=== PATIENT | female | born 1950 | race African-American/Black ===

== ENCOUNTER 2019-09-21 07:16 | Inpatient (IN) ==
[2019-09-21] MEDS ORDERED: PANTOPRAZOLE 40 MG VIAL IV STA (07:47)
[2019-09-21] MEDS ORDERED: ONDANSETRON 4 MG/2 ML VIAL IV STA (07:47)
[2019-09-21] MEDS ORDERED: SODIUM CHLORIDE 0.9% 1,000 ML IV STA (07:47)
[2019-09-21 08:14] LABS: Basophils % 0.5 % (0.0-0.8); Eosinophils # 0.1 10*3/uL (0.0-0.87); Eosinophils % 1.3 % (0.00-10.9); Hemoglobin 12.5 GM/DL (12.0-16.0); Immature Granulocytes % 0.3 %; Immature Granulocytes Absolute 0.02 #; Lymphocytes # 1.4 10*3/uL (1.4-4.0); Lymphocytes % 22.3 % (21.3-54.2); Mean Corpuscular HGB Conc 30.5 GM/DL (32-36); Mean Corpuscular Volume 87.4 FL (87-102); Mean Platelet Volume 10.3 FL (9.6-12.0); Monocytes % 8.2 % (1.7-12.7); Neutrophils % 67.4 % (38.7-73.9); Platelet Count 195 T/CUMM (130-400); Red Blood Count 4.69 MC/CUMM (3.8-5.5); Red Cell Distribution Width 15.1 % (9.3-17.3); White Blood Count 6.4 T/CUMM (4-12)
[2019-09-21 08:22] LABS: INR 3.4; Partial Thromboplastin Time 39.2 SECS (20.8-36.0)
[2019-09-21 08:29] LABS: PT Patient Result 36.4 SECS (9.6-12.2)
[2019-09-21 08:32] LABS: % Iron Saturation 19.6 % (18-50); Albumin 3.1 G/DL (3.4-5.0); Bilirubin,Total 0.6 MG/DL (0.2-1.0); Calcium 8.3 MG/DL (8.5-10.1); Osmolality,Calculated 289.8 MOS/KG (273-304); Total Protein 6.1 G/DL (6.4-8.3)
[2019-09-21 09:06] LABS: Folate 14.7 NG/ML (5.4-24.0)
[2019-09-21] MEDS ORDERED: ONDANSETRON 4 MG/2 ML VIAL IV PRN (10:26)
[2019-09-21] MEDS: PANTOPRAZOLE 40 MG TABLET PO SCH (11:23)
[2019-09-21 11:51] LABS: Hemoglobin 12.1 GM/DL (12.0-16.0)
[2019-09-21 18:40] LABS: Hematocrit 32.5 VOL% (35.7-47.0); Hemoglobin 9.5 GM/DL (12.0-16.0)
[2019-09-22 02:19] LABS: Basophils % 0.3 % (0.0-0.8); Eosinophils # 0.2 10*3/uL (0.0-0.87); Hemoglobin 9.4 GM/DL (12.0-16.0); Immature Granulocytes % 0.4 %; Immature Granulocytes Absolute 0.03 #; Lymphocytes # 2.7 10*3/uL (1.4-4.0); Lymphocytes % 35.7 % (21.3-54.2); Mean Corpuscular HGB Conc 29.4 GM/DL (32-36); Mean Corpuscular Volume 90.9 FL (87-102); Mean Platelet Volume 9.7 FL (9.6-12.0); Monocytes % 8.3 % (1.7-12.7); Neutrophils % 53.3 % (38.7-73.9); Platelet Count 157 T/CUMM (130-400); Red Blood Count 3.52 MC/CUMM (3.8-5.5); Red Cell Distribution Width 15.3 % (9.3-17.3); White Blood Count 7.5 T/CUMM (4-12)
[2019-09-22 02:51] LABS: Calcium 7.7 MG/DL (8.5-10.1); Osmolality,Calculated 288.7 MOS/KG (273-304); Thyroid Stimulating Hormone 0.245 uIU/ml (0.358-3.74)
[2019-09-22 03:20] LABS: INR 3.5
[2019-09-22 03:21] LABS: PT Patient Result 37.4 SECS (9.6-12.2)
[2019-09-22] MEDS: SIMVASTATIN 10 MG TABLET PO SCH (08:22)
[2019-09-22] MEDS: ATENOLOL 25 MG TABLET PO SCH (08:22)
[2019-09-22] MEDS: MAGNESIUM CHLORIDE 64 MG TABLET PO SCH ×2 (08:22→21:40)
[2019-09-22] MEDS: PANTOPRAZOLE 40 MG TABLET PO SCH (08:22)
[2019-09-22] MEDS: SODIUM CHLORIDE 0.9% 1,000 ML IV SCH ×2 (10:46→21:40)
[2019-09-23 06:07] LABS: Basophils % 0.4 % (0.0-0.8); Eosinophils # 0.2 10*3/uL (0.0-0.87); Eosinophils % 2.1 % (0.00-10.9); Hematocrit 32.4 VOL% (35.7-47.0); Hemoglobin 9.8 GM/DL (12.0-16.0); Immature Granulocytes % 0.3 %; Immature Granulocytes Absolute 0.02 #; Lymphocytes # 2.3 10*3/uL (1.4-4.0); Lymphocytes % 30.9 % (21.3-54.2); Mean Corpuscular HGB Conc 30.2 GM/DL (32-36); Mean Platelet Volume 10.5 FL (9.6-12.0); Neutrophils % 56.3 % (38.7-73.9); Platelet Count 170 T/CUMM (130-400); Red Blood Count 3.68 MC/CUMM (3.8-5.5); Red Cell Distribution Width 15.3 % (9.3-17.3); White Blood Count 7.3 T/CUMM (4-12)
[2019-09-23 06:24] LABS: INR 2.5
[2019-09-23 06:26] LABS: PT Patient Result 27.3 SECS (9.6-12.2)
[2019-09-23 06:29] LABS: Calcium 8.2 MG/DL (8.5-10.1); Osmolality,Calculated 287.6 MOS/KG (273-304)
[2019-09-23 06:43] LABS: Free T4 (Free Thyroxine) 1.08 NG/DL (0.76-1.46); Thyroid Stimulating Hormone 0.336 uIU/ml (0.358-3.74)
[2019-09-23] MEDS: SIMVASTATIN 10 MG TABLET PO SCH (09:20)
[2019-09-23] MEDS: ATENOLOL 25 MG TABLET PO SCH (09:20)
[2019-09-23] MEDS: MAGNESIUM CHLORIDE 64 MG TABLET PO SCH ×2 (09:20→22:23)
[2019-09-23] MEDS: PANTOPRAZOLE 40 MG TABLET PO SCH (09:21)
[2019-09-23] MEDS: SODIUM CHLORIDE 0.9% 1,000 ML IV SCH (16:36)
[2019-09-24 04:03] LABS: INR 1.7; PT Patient Result 18.5 SECS (9.6-12.2)
[2019-09-24] MEDS: SODIUM CHLORIDE 0.9% 1,000 ML IV SCH ×2 (07:17→07:28)
[2019-09-24 07:40] LABS: Basophils % 0.4 % (0.0-0.8); Eosinophils # 0.1 10*3/uL (0.0-0.87); Hematocrit 28.4 VOL% (35.7-47.0); Hemoglobin 8.8 GM/DL (12.0-16.0); Immature Granulocytes % 0.3 %; Immature Granulocytes Absolute 0.02 #; Lymphocytes # 2.4 10*3/uL (1.4-4.0); Mean Corpuscular Volume 87.1 FL (87-102); Mean Platelet Volume 10.2 FL (9.6-12.0); Monocytes % 9.3 % (1.7-12.7); Platelet Count 188 T/CUMM (130-400); Red Blood Count 3.26 MC/CUMM (3.8-5.5); Red Cell Distribution Width 15.3 % (9.3-17.3); White Blood Count 6.9 T/CUMM (4-12)
[2019-09-24 08:04] LABS: Calcium 8.6 MG/DL (8.5-10.1); Osmolality,Calculated 294.1 MOS/KG (273-304)
[2019-09-24] MEDS ORDERED: MAGNESIUM SULF RIDER 4 GM in PREMIX 1 EACH IV PRN (08:28)
[2019-09-24] MEDS ORDERED: MAGNESIUM SULF RIDER 2 GM in PREMIX 1 EACH IV PRN (08:28)
[2019-09-24] MEDS: PANTOPRAZOLE 40 MG TABLET PO SCH (09:59)
[2019-09-24] MEDS: SIMVASTATIN 10 MG TABLET PO SCH (09:59)
[2019-09-24] MEDS: MAGNESIUM CHLORIDE 64 MG TABLET PO SCH ×2 (09:59→21:07)
[2019-09-24] MEDS: ATENOLOL 25 MG TABLET PO SCH (09:59)
[2019-09-24] MEDS ORDERED: WARFARIN 3 MG TABLET PO SCH (18:00)
[2019-09-25 05:52] LABS: Basophils % 0.3 % (0.0-0.8); Eosinophils # 0.2 10*3/uL (0.0-0.87); Eosinophils % 3.2 % (0.00-10.9); Hematocrit 27.7 VOL% (35.7-47.0); Hemoglobin 8.4 GM/DL (12.0-16.0); Immature Granulocytes % 0.3 %; Immature Granulocytes Absolute 0.02 #; Lymphocytes # 2.5 10*3/uL (1.4-4.0); Mean Corpuscular HGB Conc 30.3 GM/DL (32-36); Mean Corpuscular Volume 87.9 FL (87-102); Mean Platelet Volume 10.2 FL (9.6-12.0); Monocytes % 10.4 % (1.7-12.7); NRBC # 0.03 10*3/uL; Neutrophils % 44.8 % (38.7-73.9); Platelet Count 176 T/CUMM (130-400); Red Blood Count 3.15 MC/CUMM (3.8-5.5); Red Cell Distribution Width 15.9 % (9.3-17.3); White Blood Count 6.2 T/CUMM (4-12)
[2019-09-25 05:54] LABS: INR 1.2; PT Patient Result 13.4 SECS (9.6-12.2)
[2019-09-25 06:20] LABS: Calcium 8.1 MG/DL (8.5-10.1)
[2019-09-25] MEDS ORDERED: POTASSIUM CHLORIDE 20 MEQ TABLET PO PRN (08:04)
[2019-09-25] MEDS: ATENOLOL 25 MG TABLET PO SCH (08:50)
[2019-09-25] MEDS: MAGNESIUM CHLORIDE 64 MG TABLET PO SCH (08:50)
[2019-09-25] MEDS: PANTOPRAZOLE 40 MG TABLET PO SCH (08:51)
[2019-09-25] MEDS: SIMVASTATIN 10 MG TABLET PO SCH (08:51)
[2019-09-25 11:34] VITALS: BP 120/75
[2019-09-25] MEDS ORDERED: MAGNESIUM CHLORIDE 64 MG TABLET PO SCH (15:00)
== END 2019-09-25 15:30 | disposition home or self-care (01) | DRG 813 ==
LOC: N.EDINP 07:16 → N.ED 07:16 → SUATTDRO 09:38 → N.EDINP 10:46 → N.4E 10:47
PROVIDERS: ADMIT Internal Medicine Nephrology; ATTEND Family Medicine

== ENCOUNTER 2022-04-04 14:35 | Inpatient (IN) ==
[2022-04-04] MEDS ORDERED: CLINDAMYCIN INJ 600 MG/50 ML PREMIX IV ONE (15:01)
[2022-04-04 16:24] LABS: Basophils % 0.2 % (0.0-0.8); Hematocrit 41.2 VOL% (35.7-47.0); Immature Granulocytes Absolute 0.18 #; Lymphocytes # 1.2 10*3/uL (1.4-4.0); Lymphocytes % 6.3 % (21.3-54.2); Mean Corpuscular HGB Conc 31.6 GM/DL (32-36); Mean Corpuscular Volume 87.7 FL (87-102); Mean Platelet Volume 9.8 FL (9.6-12.0); Monocytes # 0.9 10*3/uL (0.11-0.8); Monocytes % 4.7 % (1.7-12.7); Neutrophils % 87.8 % (38.7-73.9); Platelet Count 211 T/CUMM (130-400); Red Cell Distribution Width 15.6 % (9.3-17.3); White Blood Count 18.4 T/CUMM (4-12)
[2022-04-04 16:46] LABS: Albumin 2.9 G/DL (3.4-5.0); Bilirubin,Total 2.4 MG/DL (0.20-1.00); Calcium 9.6 MG/DL (8.5-10.1); Osmolality,Calculated 283.3 MOS/KG (273-304); Potassium 3.4 MMOL/L (3.5-5.1); Total Protein 6.6 G/DL (6.4-8.2)
[2022-04-04] MEDS ORDERED: ONDANSETRON 4 MG/2 ML VIAL IV PRN (17:28)
[2022-04-04 17:38] LABS: PT Patient Result 53.2 SECS (10.5-12.0)
[2022-04-04 17:41] LABS: INR 5.4
[2022-04-04 18:18] LABS: Thyroid Stimulating Hormone 0.139 uIU/ml (0.358-3.74)
[2022-04-04] MEDS: cefTRIAXone 1,000 MG in SODIUM CHLORIDE 0.9% 100 ML IV SCH (18:37)
[2022-04-04] MEDS: FUROSEMIDE 40 MG/4 ML VIAL IV SCH (18:37)
[2022-04-04] MEDS: VANCOMYCIN INJ 1,750 MG in SODIUM CHLORIDE 0.9% 500 ML IV SCH (20:00)
[2022-04-04] MEDS: LATANOPROST 0.005% OPH SOLN 2.5 ML BOTTLE BOTH EYES SCH (21:45)
[2022-04-04] MEDS: SIMVASTATIN 10 MG TABLET PO SCH (21:45)
[2022-04-04] MEDS: POTASSIUM CHLORIDE 20 MEQ TABLET PO SCH (22:10)
[2022-04-05 05:05] LABS: Basophils % 0.2 % (0.0-0.8); Eosinophils % 0.1 % (0.00-10.9); Hematocrit 36.9 VOL% (35.7-47.0); Hemoglobin 11.6 GM/DL (12.0-16.0); Immature Granulocytes % 1.1 %; Mean Corpuscular HGB Conc 31.4 GM/DL (32-36); Mean Platelet Volume 9.9 FL (9.6-12.0); Monocytes % 5.4 % (1.7-12.7); Neutrophils % 82.2 % (38.7-73.9); Platelet Count 199 T/CUMM (130-400); Red Blood Count 4.24 MC/CUMM (3.8-5.5); Red Cell Distribution Width 15.4 % (9.3-17.3); White Blood Count 18.4 T/CUMM (4-12)
[2022-04-05 05:11] LABS: Bacteria,Urine Occasional /HPF (Few); Bilirubin,Urine Negative (Negative); Blood, Urine Large mg/dL (Negative); Glucose,Urine (UA) Negative (Negative); Ketones,Urine Negative (Negative); Mucus,Urine Occasional /LPF (Occasional); Nitrite,Urine Negative (Negative); Protein,Urine Negative (Negative); RBC,Urine 48 /HPF (0-4); Urine Appearance Clear (Clear); Urine Color Yellow (Yellow); Urine Urobilinogen 0.2 eU/dL (<2.0); Urine pH 5.5 (4.5-8.0)
[2022-04-05 05:20] LABS: PT Patient Result 51.3 SECS (10.5-12.0)
[2022-04-05 05:21] LABS: Calcium 8.9 MG/DL (8.5-10.1); Osmolality,Calculated 279.4 MOS/KG (273-304); Potassium 2.9 MMOL/L (3.5-5.1)
[2022-04-05 05:22] LABS: Albumin 2.4 G/DL (3.4-5.0); Bilirubin,Direct 0.28 MG/DL (0.0-0.20); Bilirubin,Indirect 1.3 MG/DL (0.0-1.0); Bilirubin,Total 1.6 MG/DL (0.20-1.00); Total Protein 5.8 G/DL (6.4-8.2)
[2022-04-05 05:23] LABS: INR 5.2
[2022-04-05] MEDS: FUROSEMIDE 40 MG/4 ML VIAL IV SCH ×2 (05:30→17:04)
[2022-04-05] MEDS: VANCOMYCIN INJ 1,750 MG in SODIUM CHLORIDE 0.9% 500 ML IV SCH ×2 (07:14→20:10)
[2022-04-05] MEDS: POTASSIUM CHLORIDE 20 MEQ TABLET PO SCH ×3 (10:39→20:10)
[2022-04-05] MEDS: atenoloL 25 MG TABLET PO SCH (10:39)
[2022-04-05] MEDS: PANTOPRAZOLE 40 MG TABLET PO SCH (10:39)
[2022-04-05] MEDS ORDERED: MAGNESIUM SULF RIDER 2 GM/50 ML PREMIX IV ONE (12:51)
[2022-04-05] MEDS: cefTRIAXone 1,000 MG in SODIUM CHLORIDE 0.9% 100 ML IV SCH (17:04)
[2022-04-05] MEDS ORDERED: WARFARIN 5 MG TABLET PO SCH (18:00)
[2022-04-05] MEDS: LATANOPROST 0.005% OPH SOLN 2.5 ML BOTTLE BOTH EYES SCH (20:10)
[2022-04-05] MEDS: SIMVASTATIN 10 MG TABLET PO SCH (20:10)
[2022-04-06] MEDS: FUROSEMIDE 40 MG/4 ML VIAL IV SCH ×2 (04:40→17:20)
[2022-04-06 05:42] LABS: Basophils % 0.3 % (0.0-0.8); Eosinophils # 0.1 10*3/uL (0.0-0.87); Eosinophils % 0.8 % (0.00-10.9); Hematocrit 36.9 VOL% (35.7-47.0); Hemoglobin 11.4 GM/DL (12.0-16.0); Immature Granulocytes % 0.8 %; Immature Granulocytes Absolute 0.11 #; Lymphocytes # 1.8 10*3/uL (1.4-4.0); Lymphocytes % 12.5 % (21.3-54.2); Mean Corpuscular HGB Conc 30.9 GM/DL (32-36); Mean Corpuscular Volume 86.8 FL (87-102); Mean Platelet Volume 9.9 FL (9.6-12.0); Monocytes % 6.9 % (1.7-12.7); Neutrophils % 78.7 % (38.7-73.9); Platelet Count 195 T/CUMM (130-400); Red Blood Count 4.25 MC/CUMM (3.8-5.5); Red Cell Distribution Width 15.3 % (9.3-17.3); White Blood Count 14.4 T/CUMM (4-12)
[2022-04-06 05:47] LABS: INR 2.1; PT Patient Result 22.1 SECS (10.5-12.0)
[2022-04-06 05:53] LABS: Calcium 8.5 MG/DL (8.5-10.1); Osmolality,Calculated 279.4 MOS/KG (273-304); Potassium 3.4 MMOL/L (3.5-5.1)
[2022-04-06] MEDS: PANTOPRAZOLE 40 MG TABLET PO SCH (09:05)
[2022-04-06] MEDS: POTASSIUM CHLORIDE 20 MEQ TABLET PO SCH ×3 (09:05→21:10)
[2022-04-06] MEDS: atenoloL 25 MG TABLET PO SCH (09:05)
[2022-04-06] MEDS: VANCOMYCIN INJ 1,750 MG in SODIUM CHLORIDE 0.9% 500 ML IV SCH ×2 (10:43→21:10)
[2022-04-06] MEDS: WARFARIN 5 MG TABLET PO SCH (12:21)
[2022-04-06] MEDS ORDERED: WARFARIN 3 MG TABLET PO SCH (18:00)
[2022-04-06] MEDS: SIMVASTATIN 10 MG TABLET PO SCH (21:10)
[2022-04-06] MEDS: cefTRIAXone 1,000 MG in SODIUM CHLORIDE 0.9% 100 ML IV SCH (21:10)
[2022-04-06] MEDS: LATANOPROST 0.005% OPH SOLN 2.5 ML BOTTLE BOTH EYES SCH (21:10)
[2022-04-07 04:48] LABS: Basophils % 0.3 % (0.0-0.8); Eosinophils # 0.2 10*3/uL (0.0-0.87); Eosinophils % 2.2 % (0.00-10.9); Hematocrit 38.6 VOL% (35.7-47.0); Immature Granulocytes % 0.7 %; Immature Granulocytes Absolute 0.07 #; Lymphocytes # 1.8 10*3/uL (1.4-4.0); Lymphocytes % 18.4 % (21.3-54.2); Mean Corpuscular HGB Conc 31.1 GM/DL (32-36); Mean Corpuscular Volume 87.1 FL (87-102); Mean Platelet Volume 9.8 FL (9.6-12.0); Monocytes # 0.8 10*3/uL (0.11-0.8); Monocytes % 8.8 % (1.7-12.7); Neutrophils % 69.6 % (38.7-73.9); Platelet Count 238 T/CUMM (130-400); Red Blood Count 4.43 MC/CUMM (3.8-5.5); Red Cell Distribution Width 15.2 % (9.3-17.3); White Blood Count 9.6 T/CUMM (4-12)
[2022-04-07 04:57] LABS: INR 1.7; PT Patient Result 18.4 SECS (10.5-12.0)
[2022-04-07 05:02] LABS: Calcium 8.7 MG/DL (8.5-10.1); Osmolality,Calculated 278.4 MOS/KG (273-304); Potassium 4.6 MMOL/L (3.5-5.1)
[2022-04-07] MEDS: FUROSEMIDE 40 MG/4 ML VIAL IV SCH ×2 (05:30→16:43)
[2022-04-07] MEDS ORDERED: MAGNESIUM SULF RIDER 2 GM/50 ML PREMIX IV ONE (07:32)
[2022-04-07] MEDS: VANCOMYCIN INJ 1,750 MG in SODIUM CHLORIDE 0.9% 500 ML IV SCH ×2 (08:01→20:35)
[2022-04-07] MEDS: atenoloL 25 MG TABLET PO SCH (08:02)
[2022-04-07] MEDS: WARFARIN 5 MG TABLET PO SCH (08:02)
[2022-04-07] MEDS: PANTOPRAZOLE 40 MG TABLET PO SCH (08:02)
[2022-04-07] MEDS: POTASSIUM CHLORIDE 20 MEQ TABLET PO SCH ×3 (08:02→21:00)
[2022-04-07] MEDS: POLYETHYLENE GLYCOL POWDER 17 GM PACK PO SCH (16:04)
[2022-04-07] MEDS: SIMVASTATIN 10 MG TABLET PO SCH (21:00)
[2022-04-07] MEDS: cefTRIAXone 1,000 MG in SODIUM CHLORIDE 0.9% 100 ML IV SCH (21:01)
[2022-04-07] MEDS: LATANOPROST 0.005% OPH SOLN 2.5 ML BOTTLE BOTH EYES SCH (21:06)
[2022-04-07] MEDS: diphenhydrAMINE 50 MG/1 ML VIAL IV PRN (21:06)
[2022-04-07] MEDS: CLINDAMYCIN INJ 600 MG/50 ML PREMIX IV SCH (22:11)
[2022-04-08 04:33] LABS: Basophils % 0.2 % (0.0-0.8); Eosinophils # 0.3 10*3/uL (0.0-0.87); Eosinophils % 2.4 % (0.00-10.9); Hematocrit 40.9 VOL% (35.7-47.0); Hemoglobin 12.7 GM/DL (12.0-16.0); Immature Granulocytes % 0.9 %; Lymphocytes # 1.9 10*3/uL (1.4-4.0); Lymphocytes % 17.9 % (21.3-54.2); Mean Corpuscular HGB Conc 31.1 GM/DL (32-36); Mean Corpuscular Volume 87.8 FL (87-102); Mean Platelet Volume 9.7 FL (9.6-12.0); Monocytes # 0.8 10*3/uL (0.11-0.8); Monocytes % 7.7 % (1.7-12.7); Neutrophils % 70.9 % (38.7-73.9); Platelet Count 263 T/CUMM (130-400); Red Blood Count 4.66 MC/CUMM (3.8-5.5); Red Cell Distribution Width 15.3 % (9.3-17.3); White Blood Count 10.7 T/CUMM (4-12)
[2022-04-08 04:42] LABS: PT Patient Result 21.2 SECS (10.5-12.0)
[2022-04-08] MEDS: FUROSEMIDE 40 MG/4 ML VIAL IV SCH ×2 (05:02→17:21)
[2022-04-08] MEDS: CLINDAMYCIN INJ 600 MG/50 ML PREMIX IV SCH (05:04)
[2022-04-08] MEDS: WARFARIN 5 MG TABLET PO SCH (09:41)
[2022-04-08] MEDS: POTASSIUM CHLORIDE 20 MEQ TABLET PO SCH ×3 (09:41→21:22)
[2022-04-08] MEDS: PANTOPRAZOLE 40 MG TABLET PO SCH (09:42)
[2022-04-08] MEDS: atenoloL 25 MG TABLET PO SCH (09:42)
[2022-04-08] MEDS: POLYETHYLENE GLYCOL POWDER 17 GM PACK PO SCH (09:42)
[2022-04-08] MEDS ORDERED: MORPHINE 2 MG/1 ML SYRINGE IV PRN (11:10)
[2022-04-08] MEDS ORDERED: diphenhydrAMINE 50 MG/1 ML VIAL IV SCH (11:30)
[2022-04-08] MEDS: methylPREDNISolone SOD SUC 40 MG/1 ML VIAL IV SCH (12:04)
[2022-04-08] MEDS: SKIN HEALING OINT (AQUAPHOR) 50 GM TUBE TOP PRN (16:20)
[2022-04-08] MEDS: cefTRIAXone 1,000 MG in SODIUM CHLORIDE 0.9% 100 ML IV SCH (21:22)
[2022-04-08] MEDS: LATANOPROST 0.005% OPH SOLN 2.5 ML BOTTLE BOTH EYES SCH (21:22)
[2022-04-08] MEDS: SIMVASTATIN 10 MG TABLET PO SCH (21:22)
[2022-04-08] MEDS: DOXYCYCLINE HYCLATE INJ 100 MG in SODIUM CHLORIDE 0.9% 100 ML IV SCH (23:15)
[2022-04-09] MEDS: methylPREDNISolone SOD SUC 40 MG/1 ML VIAL IV SCH ×2 (00:23→21:48)
[2022-04-09 05:22] LABS: Basophils % 0.1 % (0.0-0.8); Eosinophils # 0.1 10*3/uL (0.0-0.87); Eosinophils % 0.6 % (0.00-10.9); Hematocrit 44.8 VOL% (35.7-47.0); Hemoglobin 13.9 GM/DL (12.0-16.0); Immature Granulocytes % 1.3 %; Immature Granulocytes Absolute 0.18 #; Lymphocytes # 0.9 10*3/uL (1.4-4.0); Lymphocytes % 6.4 % (21.3-54.2); Mean Corpuscular Volume 87.5 FL (87-102); Mean Platelet Volume 9.5 FL (9.6-12.0); Monocytes # 0.2 10*3/uL (0.11-0.8); Monocytes % 1.3 % (1.7-12.7); Neutrophils % 90.3 % (38.7-73.9); Platelet Count 290 T/CUMM (130-400); Red Blood Count 5.12 MC/CUMM (3.8-5.5); Red Cell Distribution Width 15.1 % (9.3-17.3); White Blood Count 14.4 T/CUMM (4-12)
[2022-04-09] MEDS: FUROSEMIDE 40 MG/4 ML VIAL IV SCH ×2 (05:36→16:54)
[2022-04-09 05:43] LABS: Albumin 2.2 G/DL (3.4-5.0); Bilirubin,Total 0.6 MG/DL (0.20-1.00); Calcium 9.4 MG/DL (8.5-10.1); Potassium 5.4 MMOL/L (3.5-5.1)
[2022-04-09] MEDS: PANTOPRAZOLE 40 MG TABLET PO SCH (09:08)
[2022-04-09] MEDS: POLYETHYLENE GLYCOL POWDER 17 GM PACK PO SCH (09:08)
[2022-04-09] MEDS: WARFARIN 5 MG TABLET PO SCH (09:08)
[2022-04-09] MEDS: atenoloL 25 MG TABLET PO SCH (09:08)
[2022-04-09] MEDS: DOXYCYCLINE HYCLATE INJ 100 MG in SODIUM CHLORIDE 0.9% 100 ML IV SCH ×2 (09:11→21:44)
[2022-04-09] MEDS: POTASSIUM CHLORIDE 20 MEQ TABLET PO SCH ×3 (09:15→21:43)
[2022-04-09] MEDS: diphenhydrAMINE 50 MG/1 ML VIAL IV PRN (11:01)
[2022-04-09] MEDS: LACTULOSE 20 GM/30 ML UDCUP PO SCH ×2 (15:58→21:43)
[2022-04-09] MEDS: SKIN HEALING OINT (AQUAPHOR) 50 GM TUBE TOP PRN (17:06)
[2022-04-09] MEDS ORDERED: ALUMINUM/MAGNES/SIMETH MAX STR 30 ML UDCUP PO PRN (19:47)
[2022-04-09] MEDS: cefTRIAXone 1,000 MG in SODIUM CHLORIDE 0.9% 100 ML IV SCH (20:14)
[2022-04-09] MEDS: SIMVASTATIN 10 MG TABLET PO SCH (21:43)
[2022-04-09] MEDS: LATANOPROST 0.005% OPH SOLN 2.5 ML BOTTLE BOTH EYES SCH (21:44)
[2022-04-10 05:30] LABS: Basophils % 0.2 % (0.0-0.8); Eosinophils # 0.3 10*3/uL (0.0-0.87); Eosinophils % 1.8 % (0.00-10.9); Hematocrit 44.1 VOL% (35.7-47.0); Hemoglobin 13.7 GM/DL (12.0-16.0); Immature Granulocytes % 1.9 %; Immature Granulocytes Absolute 0.36 #; Lymphocytes # 1.1 10*3/uL (1.4-4.0); Lymphocytes % 5.7 % (21.3-54.2); Mean Corpuscular HGB Conc 31.1 GM/DL (32-36); Mean Corpuscular Volume 87.2 FL (87-102); Mean Platelet Volume 9.6 FL (9.6-12.0); Monocytes # 0.5 10*3/uL (0.11-0.8); Monocytes % 2.8 % (1.7-12.7); Neutrophils % 87.6 % (38.7-73.9); Platelet Count 333 T/CUMM (130-400); Red Blood Count 5.06 MC/CUMM (3.8-5.5); Red Cell Distribution Width 15.2 % (9.3-17.3); White Blood Count 18.7 T/CUMM (4-12)
[2022-04-10] MEDS: LACTULOSE 20 GM/30 ML UDCUP PO SCH ×4 (05:30→20:17)
[2022-04-10] MEDS: FUROSEMIDE 40 MG/4 ML VIAL IV SCH ×2 (05:31→17:48)
[2022-04-10 05:33] LABS: INR 2.5; PT Patient Result 25.6 SECS (10.5-12.0)
[2022-04-10 05:51] LABS: Albumin 2.5 G/DL (3.4-5.0); Bilirubin,Total 0.5 MG/DL (0.20-1.00); Calcium 9.4 MG/DL (8.5-10.1); Osmolality,Calculated 281.7 MOS/KG (273-304); Potassium 4.5 MMOL/L (3.5-5.1); Total Protein 6.9 G/DL (6.4-8.2)
[2022-04-10] MEDS: POLYETHYLENE GLYCOL POWDER 17 GM PACK PO SCH (09:07)
[2022-04-10] MEDS: atenoloL 25 MG TABLET PO SCH (09:08)
[2022-04-10] MEDS: WARFARIN 4 MG TABLET PO SCH (09:08)
[2022-04-10] MEDS: methylPREDNISolone SOD SUC 40 MG/1 ML VIAL IV SCH ×2 (09:08→20:18)
[2022-04-10] MEDS: POTASSIUM CHLORIDE 20 MEQ TABLET PO SCH ×3 (09:09→20:17)
[2022-04-10] MEDS: PANTOPRAZOLE 40 MG TABLET PO SCH (09:09)
[2022-04-10] MEDS: DOXYCYCLINE HYCLATE INJ 100 MG in SODIUM CHLORIDE 0.9% 100 ML IV SCH ×2 (11:00→20:27)
[2022-04-10] MEDS: SIMVASTATIN 10 MG TABLET PO SCH (20:17)
[2022-04-10] MEDS: LATANOPROST 0.005% OPH SOLN 2.5 ML BOTTLE BOTH EYES SCH (20:17)
[2022-04-10] MEDS: diphenhydrAMINE 50 MG/1 ML VIAL IV PRN (22:38)
[2022-04-11] MEDS: LACTULOSE 20 GM/30 ML UDCUP PO SCH ×4 (03:21→20:24)
[2022-04-11] MEDS: diphenhydrAMINE 50 MG/1 ML VIAL IV PRN (04:14)
[2022-04-11] MEDS: FUROSEMIDE 40 MG/4 ML VIAL IV SCH ×2 (04:35→17:05)
[2022-04-11 05:35] LABS: Basophils # 0.1 10*3/uL (0.0-0.2); Basophils % 0.2 % (0.0-0.8); Eosinophils # 0.5 10*3/uL (0.0-0.87); Eosinophils % 2.1 % (0.00-10.9); Hematocrit 44.5 VOL% (35.7-47.0); Immature Granulocytes % 0.8 %; Immature Granulocytes Absolute 0.17 #; Lymphocytes # 1.6 10*3/uL (1.4-4.0); Lymphocytes % 7.2 % (21.3-54.2); Mean Corpuscular HGB Conc 31.5 GM/DL (32-36); Mean Corpuscular Volume 86.1 FL (87-102); Mean Platelet Volume 9.2 FL (9.6-12.0); Monocytes # 0.6 10*3/uL (0.11-0.8); Monocytes % 2.7 % (1.7-12.7); Platelet Count 361 T/CUMM (130-400); Red Blood Count 5.17 MC/CUMM (3.8-5.5); White Blood Count 22.3 T/CUMM (4-12)
[2022-04-11 05:57] LABS: Albumin 2.7 G/DL (3.4-5.0); Bilirubin,Total 0.7 MG/DL (0.20-1.00); Calcium 9.6 MG/DL (8.5-10.1); Osmolality,Calculated 276.1 MOS/KG (273-304); Potassium 4.9 MMOL/L (3.5-5.1)
[2022-04-11 06:11] LABS: Eosinophils 2 % (0-10); Lymphocytes 8 % (20-55); Platelet Estimate Adequate; Total Cells Counted 100
[2022-04-11] MEDS: POTASSIUM CHLORIDE 20 MEQ TABLET PO SCH ×3 (09:13→20:24)
[2022-04-11] MEDS: atenoloL 25 MG TABLET PO SCH (09:13)
[2022-04-11] MEDS: PANTOPRAZOLE 40 MG TABLET PO SCH (09:14)
[2022-04-11] MEDS: WARFARIN 4 MG TABLET PO SCH (09:14)
[2022-04-11] MEDS: POLYETHYLENE GLYCOL POWDER 17 GM PACK PO SCH (09:15)
[2022-04-11] MEDS: methylPREDNISolone SOD SUC 40 MG/1 ML VIAL IV SCH ×4 (10:20→21:36)
[2022-04-11] MEDS: CETIRIZINE 10 MG TABLET PO SCH (10:23)
[2022-04-11 10:27] LABS: Rheumatoid Factor < 15 IU/ML (<15)
[2022-04-11 11:00] LABS: HIV Antigen/Antibody Result Nonreactive (Nonreactive); Hepatitis B Core IgM Quant 0.05 Index; Hepatitis B Surface Ag Quant < 0.10 Index; Hepatitis B Surface Ag Result Non-Reactive (NonReactive); Hepatitis C Virus Ab Quant 0.05 Index; Hepatitis C Virus Ab Result Non-Reactive (NonReactive)
[2022-04-11] MEDS: DOXYCYCLINE HYCLATE INJ 100 MG in SODIUM CHLORIDE 0.9% 100 ML IV SCH (11:00)
[2022-04-11 14:11] LABS: Bilirubin,Urine Negative (Negative); Glucose,Urine (UA) Negative (Negative); Ketones,Urine Negative (Negative); Mucus,Urine Occasional /LPF (Occasional); Nitrite,Urine Negative (Negative); Protein,Urine Negative (Negative); RBC,Urine 2 /HPF (0-4); Squamous Epithelial Cell,Urine Many /HPF (0-10); Urine Appearance Clear (Clear); Urine Color Yellow (Yellow); Urine Specific Gravity 1.015 (1.001-1.035); Urine pH 5.5 (4.5-8.0)
[2022-04-11 14:12] LABS: Blood, Urine Trace mg/dL (Negative); Urine Urobilinogen 0.2 eU/dL (<2.0)
[2022-04-11] MEDS: hydrOXYzine HCL 25 MG TABLET PO PRN (15:17)
[2022-04-11] MEDS: SIMVASTATIN 10 MG TABLET PO SCH (20:24)
[2022-04-11] MEDS: LATANOPROST 0.005% OPH SOLN 2.5 ML BOTTLE BOTH EYES SCH (20:29)
[2022-04-12] MEDS: LACTULOSE 20 GM/30 ML UDCUP PO SCH ×4 (02:38→20:50)
[2022-04-12] MEDS: methylPREDNISolone SOD SUC 40 MG/1 ML VIAL IV SCH ×4 (06:02→21:44)
[2022-04-12] MEDS: FUROSEMIDE 40 MG/4 ML VIAL IV SCH ×2 (06:02→16:40)
[2022-04-12 06:33] LABS: INR 2.5; PT Patient Result 25.7 SECS (10.5-12.0)
[2022-04-12 06:43] LABS: Albumin 2.5 G/DL (3.4-5.0); Bilirubin,Total 0.4 MG/DL (0.20-1.00); Calcium 9.7 MG/DL (8.5-10.1); Osmolality,Calculated 283.7 MOS/KG (273-304); Potassium 4.8 MMOL/L (3.5-5.1); Total Protein 6.7 G/DL (6.4-8.2)
[2022-04-12] MEDS: POTASSIUM CHLORIDE 20 MEQ TABLET PO SCH ×3 (08:57→20:51)
[2022-04-12] MEDS: atenoloL 25 MG TABLET PO SCH (08:57)
[2022-04-12] MEDS: CETIRIZINE 10 MG TABLET PO SCH (08:58)
[2022-04-12] MEDS: PANTOPRAZOLE 40 MG TABLET PO SCH (08:58)
[2022-04-12] MEDS: POLYETHYLENE GLYCOL POWDER 17 GM PACK PO SCH (08:58)
[2022-04-12] MEDS: WARFARIN 4 MG TABLET PO SCH (08:59)
[2022-04-12] MEDS: SIMVASTATIN 10 MG TABLET PO SCH (20:50)
[2022-04-12] MEDS: LATANOPROST 0.005% OPH SOLN 2.5 ML BOTTLE BOTH EYES SCH (20:55)
[2022-04-13] MEDS: LACTULOSE 20 GM/30 ML UDCUP PO SCH ×4 (03:29→21:42)
[2022-04-13 05:14] LABS: Basophils % 0.2 % (0.0-0.8); Eosinophils % 0.2 % (0.00-10.9); Hemoglobin 13.3 GM/DL (12.0-16.0); Immature Granulocytes % 1.4 %; Immature Granulocytes Absolute 0.32 #; Lymphocytes # 2.7 10*3/uL (1.4-4.0); Lymphocytes % 11.8 % (21.3-54.2); Mean Corpuscular HGB Conc 31.7 GM/DL (32-36); Mean Corpuscular Volume 85.7 FL (87-102); Monocytes # 0.8 10*3/uL (0.11-0.8); Monocytes % 3.4 % (1.7-12.7); Platelet Count 386 T/CUMM (130-400); White Blood Count 22.8 T/CUMM (4-12)
[2022-04-13] MEDS: methylPREDNISolone SOD SUC 40 MG/1 ML VIAL IV SCH (05:35)
[2022-04-13] MEDS: FUROSEMIDE 40 MG/4 ML VIAL IV SCH (05:36)
[2022-04-13 05:38] LABS: Albumin 2.4 G/DL (3.4-5.0); Bilirubin,Total 0.4 MG/DL (0.20-1.00); Calcium 9.2 MG/DL (8.5-10.1); Osmolality,Calculated 288.5 MOS/KG (273-304); Potassium 4.7 MMOL/L (3.5-5.1); Total Protein 6.5 G/DL (6.4-8.2)
[2022-04-13] MEDS: hydrOXYzine HCL 25 MG TABLET PO PRN ×3 (06:05→21:45)
[2022-04-13] MEDS: POLYETHYLENE GLYCOL POWDER 17 GM PACK PO SCH (08:24)
[2022-04-13] MEDS: PANTOPRAZOLE 40 MG TABLET PO SCH (08:25)
[2022-04-13] MEDS: POTASSIUM CHLORIDE 20 MEQ TABLET PO SCH ×3 (08:25→21:41)
[2022-04-13] MEDS: CETIRIZINE 10 MG TABLET PO SCH (08:26)
[2022-04-13] MEDS: WARFARIN 4 MG TABLET PO SCH (08:26)
[2022-04-13] MEDS: atenoloL 25 MG TABLET PO SCH (08:26)
[2022-04-13] MEDS ORDERED: FUROSEMIDE 40 MG TABLET PO SCH (11:00)
[2022-04-13] MEDS: LATANOPROST 0.005% OPH SOLN 2.5 ML BOTTLE BOTH EYES SCH (21:41)
[2022-04-13] MEDS: SIMVASTATIN 10 MG TABLET PO SCH (21:41)
[2022-04-14] MEDS: LACTULOSE 20 GM/30 ML UDCUP PO SCH ×2 (03:52→08:47)
[2022-04-14 05:13] LABS: Basophils # 0.1 10*3/uL (0.0-0.2); Basophils % 0.3 % (0.0-0.8); Eosinophils # 0.7 10*3/uL (0.0-0.87); Eosinophils % 3.8 % (0.00-10.9); Hematocrit 43.6 VOL% (35.7-47.0); Hemoglobin 13.8 GM/DL (12.0-16.0); Immature Granulocytes % 2.2 %; Lymphocytes # 3.1 10*3/uL (1.4-4.0); Lymphocytes % 16.7 % (21.3-54.2); Mean Corpuscular HGB Conc 31.7 GM/DL (32-36); Mean Corpuscular Volume 85.7 FL (87-102); Mean Platelet Volume 9.1 FL (9.6-12.0); Monocytes # 1.1 10*3/uL (0.11-0.8); Monocytes % 6.2 % (1.7-12.7); Neutrophils % 70.8 % (38.7-73.9); Platelet Count 398 T/CUMM (130-400); Red Blood Count 5.09 MC/CUMM (3.8-5.5); White Blood Count 18.4 T/CUMM (4-12)
[2022-04-14] MEDS: atenoloL 25 MG TABLET PO SCH (08:42)
[2022-04-14] MEDS: CETIRIZINE 10 MG TABLET PO SCH (08:42)
[2022-04-14] MEDS: POLYETHYLENE GLYCOL POWDER 17 GM PACK PO SCH (08:42)
[2022-04-14] MEDS: PANTOPRAZOLE 40 MG TABLET PO SCH (08:43)
[2022-04-14] MEDS: POTASSIUM CHLORIDE 20 MEQ TABLET PO SCH (08:43)
[2022-04-14] MEDS: hydrOXYzine HCL 25 MG TABLET PO PRN (08:45)
[2022-04-14] MEDS: WARFARIN 4 MG TABLET PO SCH (08:46)
[2022-04-14] MEDS ORDERED: FUROSEMIDE 40 MG TABLET PO SCH (09:00)
[2022-04-14] MEDS ORDERED: predniSONE 20 MG TABLET PO SCH (09:00)
[2022-04-14 12:20] VITALS: BP 111/70
[2022-04-15 15:36] LABS: Antinuclear Ab, S 0.3 U
[2022-04-17 22:52] LABS: Myeloperoxidase Antibody < 0.2 U
== END 2022-04-14 13:17 | DRG 603 ==
LOC: EDUNIT# → EDBD → N.ED 14:35 → SUATTDRO 17:19 → N.EDINP 17:19 → N.5E 17:42
PROVIDERS: ADMIT Internal Medicine; ATTEND Internal Medicine